=== PATIENT | male | born 1940 | race Hispanic/Latino ===

== ENCOUNTER 2017-08-06 13:26 | Observation (INO) | payer MEDICARE ==
[2017-08-06 13:44] VITALS: BMI 31.4
[2017-08-06 13:49] VITALS: RESP 20
[2017-08-06 14:22] LABS: BASO # 0.1 K/uL (0.0-0.2); BASO % 0.8 % (0.0-2.0); EOS # 0.1 K/uL (0.0-0.7); EOS % 1.5 % (0.0-4.0); HEMOGLOBIN 13.8 g/dL (12.0-18.0); LYMPH # 1.9 K/uL (1.0-4.3); LYMPH % 22.4 % (20.0-40.0); MEAN CORPUSCULAR HEMOGLOBIN 31.1 pg (27.0-31.0); MEAN CORPUSCULAR HGB CONC 35.7 g/dL (33.0-37.0); MEAN PLATELET VOLUME 7.9 fL (7.2-11.7); MONO # 0.6 K/uL (0.0-0.8); MONO % 7.3 % (0.0-10.0); NEUT # 5.8 K/uL (1.8-7.0); RBC 4.45 Mil/uL (4.40-5.90); RED CELL DISTRIBUTION WIDTH 12.7 % (11.5-14.5); WHITE BLOOD COUNT 8.6 K/uL (4.8-10.8)
[2017-08-06 14:34] LABS: ALB/GLOB RATIO 1.3 (1.0-2.1); ALBUMIN 3.9 g/dL (3.5-5.0); ALT/SGPT 26 U/L (21-72); AST/SGOT 23 U/L (17-59); BLOOD UREA NITROGEN 21 mg/dL (9-20); CALCIUM 8.9 mg/dl (8.6-10.4); GFR AFRICAN-AMERICAN > 60; GFR NON-AFRICAN AMERICAN 54
--- NOTE | 2017-08-06 14:43 | RAD ---
PROCEDURE: CHEST RADIOGRAPH, 1 VIEW HISTORY: chest pain COMPARISON: None available. FINDINGS: LUNGS: Clear. PLEURA: No pneumothorax or pleural fluid seen. CARDIOVASCULAR: Atherosclerotic aortic calcifications. Cardiomediastinal silhouette is enlarged. OSSEOUS STRUCTURES: Degenerative changes. VISUALIZED UPPER ABDOMEN: Normal. OTHER FINDINGS: None. IMPRESSION: No active disease.
--- NOTE | 2017-08-06 14:52 | C.PDOC ---
History Of Present Illness 77 year old male presents to the ED for evaluation of dizziness, lightheadedness and mid-sternal chest tightness which had sudden onset after he got out of the shower earlier today. Patient states symptoms are associated with shortness of breath and worsen when taking a deep breath. Patient then sat down in his living room, took an Aspirin, and found the gradual improvement of the discomfort. Patient states he was evaluated by his roofer gypsum's (Dr. Mims) office last month and underwent a nuclear stress test. He has a follow -up appointment with Dr. Mims on 08/13 where he will receive the results. Patient denies fever, chills, vision change, nausea, vomiting, extremity numbness/weakness. Time Seen by Provider: 08/06/17 14:01 Chief Complaint (Nursing): Chest Pain History Per: Patient History/Exam Limitations: no limitations Onset/Duration Of Symptoms: Hrs, Sudden Onset Current Symptoms Are (Timing): Better Quality: "Pain" Associated Symptoms: denies: Nausea Additional History Per: Patient Past Medical History Reviewed: Historical Data, Nursing Documentation, Vital Signs Vital Signs: Last Vital Signs Temp 97.7 F 08/06/17 13:44 Pulse 56 L 08/06/17 13:44 Resp 20 08/06/17 13:44 BP 148/75 08/06/17 13:44 Pulse Ox 98 08/06/17 15:34 - Medical History PMH: HTN Surgical History: No Surg Hx - [facility] Procedures CORONAR ARTERIOGR-2 CATH (04/20/12) INSERTION OF ONE VASCULAR STENT (04/20/12) INSRT OF DRUG-ELUTING CORON ARTERY STENTS(S) (04/20/12) LEFT HEART CARDIAC CATH (04/20/12) LT HEART ANGIOCARDIOGRAM (04/20/12) PERCUTANEOUS TRANSLUMINAL CORONARY ANGIOPLASTY [PTCA] (04/20/12) PROCEDURE ON SINGLE VESSEL (04/20/12) Family History: States: Unknown Family Hx - Social History Hx Alcohol Use: Yes Hx Substance Use: No - Immunization History Hx Tetanus Toxoid Vaccination: No Hx Influenza Vaccination: Yes Hx Pneumococcal Vaccination: No Review Of Systems Constitutional: Negative for: Fever, Chills Cardiovascular: Positive for: Other (mid-sternal chest tightness ) Gastrointestinal: Negative for: Nausea, Vomiting Neurological: Positive for: Dizziness, Other (lightheadedness ). Negative for: Weakness, Numbness Physical Exam - Physical Exam Appears: Non-toxic, No Acute Distress Skin: Normal Color, Warm, Dry Head: Atraumatic, Normacephalic Eye(s): bilateral: Normal Inspection Oral Mucosa: Moist Neck: Supple Chest: Symmetrical, No Deformity, No Tenderness Cardiovascular: Rhythm Regular, No Murmur Respiratory: Normal Breath Sounds, No Rales, No Rhonchi, No Wheezing Gastrointestinal/Abdominal: Soft, No Tenderness, No Guarding, No Rebound Extremity: Normal ROM, Capillary Refill (less than 2 seconds ) Neurological/Psych: Oriented x3, Normal Speech, Normal Cognition ED Course And Treatment - Laboratory Results Result Diagrams: 08/06/17 14:17 08/06/17 14:17 Lab Interpretation: No Acute Changes ECG: Interpreted By Me ECG Rhythm: Sinus Bradycardia ECG Interpretation: No Acute Changes O2 Sat by Pulse Oximetry: 98 (on RA) Pulse Ox Interpretation: Normal - Radiology CXR: Interpreted by Me CXR Interpretation: Yes: Other (vascular congestion perihilar with prominence for the cardiomediastinal silhouette) Progress Note: Bloodwork, CXR, and EKG ordered and reviewed. Reevaluation Time: 15:03 Reassessment Condition: Improved - Physician Consult Information Time Consulting Physician Contacted: 15:03 Physician Contacted: Epifanio Mims Outcome Of Conversation: Patient to remain in the hospital for cardiac observation. He will be admitted to Dr Lewis Causey's service. Disposition - Disposition Disposition: HOSPITALIZED Disposition Time: 15:17 Condition: STABLE - POA Present On Arrival: None - Clinical Impression Clinical Impression: Chest pain - Scribe Statement The provider has reviewed the documentation as recorded by the Scribe (Alessandra Causey) Provider Attestation: All medical record entries made by the Scribe were at my direction and personally dictated by me. I have reviewed the chart and agree that the record accurately reflects my personal performance of the history, physical exam, medical decision making, and the department course for this patient. I have also personally directed, reviewed, and agree with the discharge instructions and disposition.
--- NOTE | 2017-08-06 17:53 | CP.PCM.CON ---
Past Patient History - Past Social History Smoking Status: Light Smoker < 10 Cigarettes Daily - CARDIAC Hx Hypertension: Yes - GENITOURINARY/GYNECOLOGICAL Hx Prostate Cancer: Yes - PSYCHIATRIC Hx Substance Use: No - SURGICAL HISTORY Other/Comment: Stent x 1 - ANESTHESIA Hx Anesthesia: Yes Hx Anesthesia Reactions: No Meds Allergies/Adverse Reactions: Allergies Allergy/AdvReac Type Severity Reaction Status Date / Time No Known Allergies Allergy Verified 08/06/17 13:40 - Medications Medications: Current Medications Amlodipine Besylate (Norvasc) 10 mg PO DAILY [facility] Aspirin (Aspirin) 325 mg PO DAILY [facility] Enoxaparin Sodium (Lovenox) 40 mg SC DAILY [facility] Lisinopril (Zestril) 20 mg PO DAILY [facility] Metoprolol Tartrate (Lopressor) 25 mg PO DAILY [facility] Results - Vital Signs Recent Vital Signs: Last Vital Signs Temp 97 F L 08/06/17 16:30 Pulse 59 L 08/06/17 17:04 Resp 20 08/06/17 16:30 BP 149/70 08/06/17 16:30 Pulse Ox 98 08/06/17 16:30 - Labs Result Diagrams: 08/06/17 14:17 08/06/17 14:17 Labs: Laboratory Results - last 24 hr 08/06/17 08/06/17 14:17 14:17 WBC 8.6 RBC 4.45 Hgb 13.8 Hct 38.7 MCV 87.0 MCH 31.1 H MCHC 35.7 RDW 12.7 Plt Count 230 MPV 7.9 Neut % (Auto) 68.0 Lymph % (Auto) 22.4 [place] % (Auto) 7.3 Eos % (Auto) 1.5 Baso % (Auto) 0.8 Neut # (Auto) 5.8 Lymph # (Auto) 1.9 [place] # (Auto) 0.6 Eos # (Auto) 0.1 Baso # (Auto) 0.1 Sodium 139 Potassium 4.4 Chloride 104 Carbon Dioxide 23 Anion Gap 16 BUN 21 H Creatinine 1.3 Est GFR ( Amer) > 60 Est GFR (Non-Af Amer) 54 Random Glucose 95 Calcium 8.9 Total Bilirubin 0.5 AST 23 ALT 26 Alkaline Phosphatase 69 Troponin I < 0.0120 Total Protein 7.0 Albumin 3.9 Globulin 3.1 Albumin/Globulin Ratio 1.3
--- NOTE | 2017-08-06 23:30 | CP.PCM.HP ---
Past Patient History - Past Social History Smoking Status: Light Smoker < 10 Cigarettes Daily - CARDIAC Hx Hypertension: Yes - GENITOURINARY/GYNECOLOGICAL Hx Prostate Cancer: Yes - PSYCHIATRIC Hx Substance Use: No - SURGICAL HISTORY Other/Comment: Stent x 1 - ANESTHESIA Hx Anesthesia: Yes Hx Anesthesia Reactions: No Meds Allergies/Adverse Reactions: Allergies Allergy/AdvReac Type Severity Reaction Status Date / Time No Known Allergies Allergy Verified 08/06/17 13:40 Results - Vital Signs Recent Vital Signs: Last Vital Signs Temp 97 F L 08/06/17 16:30 Pulse 59 L 08/06/17 17:04 Resp 20 08/06/17 16:30 BP 149/70 08/06/17 16:30 Pulse Ox 98 08/06/17 16:30 - Labs Result Diagrams: 08/06/17 14:17 08/06/17 14:17 Labs: Laboratory Results - last 24 hr 08/06/17 08/06/17 08/06/17 14:17 14:17 22:30 WBC 8.6 RBC 4.45 Hgb 13.8 Hct 38.7 MCV 87.0 MCH 31.1 H MCHC 35.7 RDW 12.7 Plt Count 230 MPV 7.9 Neut % (Auto) 68.0 Lymph % (Auto) 22.4 [place] % (Auto) 7.3 Eos % (Auto) 1.5 Baso % (Auto) 0.8 Neut # (Auto) 5.8 Lymph # (Auto) 1.9 [place] # (Auto) 0.6 Eos # (Auto) 0.1 Baso # (Auto) 0.1 Sodium 139 Potassium 4.4 Chloride 104 Carbon Dioxide 23 Anion Gap 16 BUN 21 H Creatinine 1.3 Est GFR ( Amer) > 60 Est GFR (Non-Af Amer) 54 Random Glucose 95 Calcium 8.9 Total Bilirubin 0.5 AST 23 ALT 26 Alkaline Phosphatase 69 Total Creatine Kinase 63 CK-MB (Mass) 0.30 Troponin I < 0.0120 < 0.0120 Total Protein 7.0 Albumin 3.9 Globulin 3.1 Albumin/Globulin Ratio 1.3
[2017-08-07 01:25] VITALS: O2SAT 96
[2017-08-07 07:48] LABS: CK-MB 0.37 ng/mL (0.0-3.38); TROPONIN I 0.035 ng/mL (0.00-0.120)
[2017-08-07 08:48] VITALS: BP 154/73; TEMP 98.3
--- NOTE | 2017-08-07 09:44 | CP.PCM.PN ---
Subjective - Date & Time of Evaluation Date of Evaluation: 08/07/17 Time of Evaluation: 09:35 - Subjective Subjective: patient has no chest pain or dyspnea Objective - Vital Signs/Intake and Output Vital Signs (last 24 hours): Temp Pulse Resp BP Pulse Ox 98.3 F 64 20 154/73 H 96 08/07/17 08:47 08/07/17 08:47 08/07/17 08:47 08/07/17 09:35 08/07/17 08:47 - Medications Medications: Current Medications Amlodipine Besylate (Norvasc) 10 mg PO DAILY [facility] Last Admin: 08/07/17 09:36 Dose: 10 mg Aspirin (Aspirin) 325 mg PO DAILY [facility] Last Admin: 08/07/17 09:35 Dose: 325 mg Enoxaparin Sodium (Lovenox) 40 mg SC DAILY [facility] Last Admin: 08/07/17 09:36 Dose: 40 mg Lisinopril (Zestril) 20 mg PO DAILY [facility] Last Admin: 08/07/17 09:36 Dose: 20 mg Metoprolol Tartrate (Lopressor) 25 mg PO DAILY [facility] Last Admin: 08/07/17 09:35 Dose: 25 mg - Labs Labs: 08/06/17 14:17 08/06/17 14:17 - Constitutional Appears: Non-toxic - Head Exam Head Exam: NORMAL INSPECTION - Eye Exam Eye Exam: Normal appearance - ENT Exam ENT Exam: Mucous Membranes Moist - Neck Exam Neck Exam: Full ROM - Respiratory Exam Respiratory Exam: NORMAL BREATHING PATTERN - Cardiovascular Exam Cardiovascular Exam: REGULAR RHYTHM - GI/Abdominal Exam GI & Abdominal Exam: Normal Bowel Sounds - Rectal Exam Rectal Exam: Deferred - Extremities Exam Extremities Exam: Normal Inspection - Back Exam Back Exam: NORMAL INSPECTION - Neurological Exam Neurological Exam: Alert - Psychiatric Exam Psychiatric exam: Normal Affect - Skin Skin Exam: Normal Color Assessment and Plan (1) Chest pain Assessment & Plan: ruled out for NE. chest pain is atypical. stress test is normal. recommend d/ c home. Status: Acute (2) CAD (coronary artery disease) Assessment & Plan: recommend ASA/Plavix Status: Acute (3) HTN (hypertension) Assessment & Plan: blood pressure control Status: Acute
[2017-08-07] MEDS ORDERED: Enoxaparin 40 mg Syringe SC SCH (10:00)
--- NOTE | 2017-08-07 11:55 | CARD ---
APPROVED REPORT EKG Measurement Heart [id number] NM [id number] <Conclusion> Sinus bradycardia Otherwise normal ECG
[2017-08-07 12:08] VITALS: PULSE 60
--- NOTE | 2017-08-07 13:10 | CP.PCM.PN ---
<PedroDuyen - Last Filed: 08/07/17 14:58> Subjective - Date & Time of Evaluation Date of Evaluation: 08/07/17 Time of Evaluation: 07:00 - Subjective Subjective: PGY2 medicine progress note for Dr. Lewis Causey: Patient was seen and examined at bedside this morning. Patient has had chest pain and neck pain that comes and goes since he had his stress test. He said he lifted his arms when they took the pictures and since then has had some pain in his neck and shoulders. He denied pain today. Dr Mims reported his stress test to be normal and has cleared the patient for discharge. No other new complaints today. Patient denies fever, chills, vision change, nausea, vomiting, extremity numbness/weakness. Objective - Vital Signs/Intake and Output Vital Signs (last 24 hours): Temp Pulse Resp BP Pulse Ox 98.3 F 60 20 154/73 H 96 08/07/17 08:47 08/07/17 12:07 08/07/17 08:47 08/07/17 09:35 08/07/17 08:47 - Medications Medications: Current Medications Amlodipine Besylate (Norvasc) 10 mg PO DAILY [facility] Last Admin: 08/07/17 09:36 Dose: 10 mg Aspirin (Aspirin) 325 mg PO DAILY [facility] Last Admin: 08/07/17 09:35 Dose: 325 mg Clopidogrel Bisulfate (Plavix) 75 mg PO DAILY [facility] Last Admin: 08/07/17 11:45 Dose: 75 mg Enoxaparin Sodium (Lovenox) 40 mg SC DAILY [facility] Last Admin: 08/07/17 09:36 Dose: 40 mg Lisinopril (Zestril) 20 mg PO DAILY [facility] Last Admin: 08/07/17 09:36 Dose: 20 mg Metoprolol Tartrate (Lopressor) 25 mg PO DAILY [facility] Last Admin: 08/07/17 09:35 Dose: 25 mg - Labs Labs: 08/06/17 14:17 08/06/17 14:17 - Constitutional Appears: Non-toxic, No Acute Distress - Head Exam Head Exam: ATRAUMATIC, NORMAL INSPECTION - Eye Exam Eye Exam: EOMI Pupil Exam: NORMAL ACCOMODATION - ENT Exam ENT Exam: Mucous Membranes Moist - Respiratory Exam Respiratory Exam: Clear to Ausculation Bilateral, NORMAL BREATHING PATTERN. absent: Respiratory Distress - Cardiovascular Exam Cardiovascular Exam: REGULAR RHYTHM, +S1, +S2 - GI/Abdominal Exam GI & Abdominal Exam: Soft, Normal Bowel Sounds. absent: Distended, Firm, Guarding, Tenderness Additional comments: obese - Extremities Exam Extremities Exam: Normal Inspection - Back Exam Back Exam: NORMAL INSPECTION. 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 Mims cardiology - outpatient recent stress test was normal --> cleared for DC with outpatient follow up Chest X ray - no active diseasxe ROMIS negative x 3 ASA 81mg PO daily, Plavix 75mg PO daily Hypertension Norvasc 10mg Po daily Lisinopril 20mg PO daily Lopressor 25mg PO daily All management per Dr. Lewis Causey. Patient is stable for discharge home. He is to follow up with Dr. Mims, cardiology, within one weeks of discharge. Patient is also to get a primary care doctor (ref given to Dr. Lewis Causey) to follow up for hospital discharge. Patient is to follow up outpatient for his muscular skeletal pain. He is to take NSADI/ibuprofen as needed for pain. Patient is also to take the following medications: Norvasc 10mg by mouth daily Aspirin 81mg by mouth daily Plavix 75mg by mouth daily Lisibopril 20mg by mouth daily Lopressor 25mg by mouth daily Medications were sent to the patient's pharmacy: [facility]. Patient is to return to the ER is symptoms return. All instructions explained to the patient and he agrees. <Santino Causey - Last Filed: 08/08/17 11:54> Objective - Vital Signs/Intake and Output Vital Signs (last 24 hours): Temp Pulse Resp BP Pulse Ox 98.3 F 60 20 154/73 H 96 08/07/17 08:47 08/07/17 12:07 08/07/17 08:47 08/07/17 09:35 08/07/17 08:47 - Labs Labs: 08/06/17 14:17 08/06/17 14:17 Attending/Attestation - Attestation I have personally seen and examined this patient.: Yes I have fully participated in the care of the patient.: Yes I have reviewed all pertinent clinical information, including history, physical exam and plan: Yes Notes (Text): case seen and d.w staff and resident, concurred with finding and management..
== END 2017-08-07 16:00 | disposition home or self-care (01) ==
LOC: C.ER 13:26 → C.9E 15:20 → C.6T 15:52
PROVIDERS: ADMIT Internal Medicine Nephrology; ATTEND Internal Medicine Nephrology
DX: M94.0 Chondrocostal junction syndrome [Tietze] (principal); I10 Essential (primary) hypertension; I25.10 Atherosclerotic heart disease of native coronary artery without angina pectoris; Z79.82 Long term (current) use of aspirin; Z87.891 Personal history of nicotine dependence; Z85.46 Personal history of malignant neoplasm of prostate
CPT/HCPCS: 36415; 71045; 80053; 84484; 85025; 93005; 96372; 99285; G0378; J1650

== ENCOUNTER 2018-01-28 06:26 | Emergency (ER) | payer MEDICARE ==
[2018-01-28 06:26] VITALS: BMI 31.4
[2018-01-28] MEDS ORDERED: Sodium Chloride 0.9% 1,000 ML IV ONE (07:33)
[2018-01-28 07:39] LABS: BASO # 0.1 K/uL (0.0-0.2); BASO % 1.3 % (0.0-2.0); EOS # 0.2 K/uL (0.0-0.7); EOS % 2.4 % (0.0-4.0); HEMOGLOBIN 13.4 g/dL (12.0-18.0); LYMPH # 1.7 K/uL (1.0-4.3); LYMPH % 24.5 % (20.0-40.0); MEAN CELL VOLUME 87.5 fL (80.0-94.0); MEAN CORPUSCULAR HEMOGLOBIN 31.4 pg (27.0-31.0); MEAN CORPUSCULAR HGB CONC 35.9 g/dL (33.0-37.0); MEAN PLATELET VOLUME 7.9 fL (7.2-11.7); MONO # 0.5 K/uL (0.0-0.8); MONO % 6.7 % (0.0-10.0); NEUT # 4.5 K/uL (1.8-7.0); NEUT % 65.1 % (50.0-75.0); NRBC % 0.1 % (0.0-2.0); RBC 4.28 Mil/uL (4.40-5.90); RED CELL DISTRIBUTION WIDTH 12.6 % (11.5-14.5)
[2018-01-28 07:45] LABS: URINE BILIRUBIN NEGATIVE (NEGATIVE); URINE BLOOD NEGATIVE (NEGATIVE); URINE CLARITY Clear (Clear); URINE COLOR Yellow (YELLOW); URINE GLUCOSE (UA) NORMAL (Normal); URINE LEUKOCYTE ESTERASE NEG Leu/uL (Negative); URINE PROTEIN NEGATIVE (NEGATIVE); URINE UROBILINOGEN NORMAL mg/dL (0.2-1.0)
[2018-01-28 08:26] LABS: BLOOD UREA NITROGEN 18 mg/dL (9-20); CALCIUM 9.2 mg/dl (8.6-10.4); GFR NON-AFRICAN AMERICAN > 60
[2018-01-28 08:27] LABS: ALB/GLOB RATIO 1.4 (1.0-2.1); ALT/SGPT 27 U/L (21-72); AST/SGOT 22 U/L (17-59); LIPASE 90 U/L (23-300)
[2018-01-28] MEDS ORDERED: Iodixanol 320 mg/ml 150 ml Bottle IV ONE (09:12)
--- NOTE | 2018-01-28 10:03 | C.PDOC ---
History Of Present Illness 77 y/o male presents to the ER complaining of tenderness in right groin which has been present for the past several weeks. Patient states that he was evaluated by a urologist, he has an US report which shows enlarged lymph nodes.Patient reports that he was referred to a surgeon, he has an appointment in 6 days. However, he is continuing to have pain so he decided to visit the ER.Denies having dysuria and hematuria. Time Seen by Provider: 01/28/18 07:26 Chief Complaint (Nursing): Groin Pain History Per: Patient History/Exam Limitations: no limitations Onset/Duration Of Symptoms: Days Current Symptoms Are (Timing): Still Present Severity: Moderate Past Medical History Reviewed: Historical Data, Nursing Documentation, Vital Signs Vital Signs: Last Vital Signs Temp 97.6 F 01/28/18 06:36 Pulse 92 H 01/28/18 06:36 Resp 18 01/28/18 06:36 BP 111/60 01/28/18 06:36 Pulse Ox 98 01/28/18 06:36 - Medical History PMH: HTN Surgical History: Coronary Stent - [facility] Procedures CORONAR ARTERIOGR-2 CATH (04/20/12) INSERTION OF ONE VASCULAR STENT (04/20/12) INSRT OF DRUG-ELUTING CORON ARTERY STENTS(S) (04/20/12) LEFT HEART CARDIAC CATH (04/20/12) LT HEART ANGIOCARDIOGRAM (04/20/12) PERCUTANEOUS TRANSLUMINAL CORONARY ANGIOPLASTY [PTCA] (04/20/12) PROCEDURE ON SINGLE VESSEL (04/20/12) Family History: States: No Known Family Hx - Social History Hx Alcohol Use: No Hx Substance Use: No - Immunization History Hx Tetanus Toxoid Vaccination: No Hx Influenza Vaccination: Yes Hx Pneumococcal Vaccination: No Review Of Systems Except As Marked, All Systems Reviewed And Found Negative. Constitutional: Negative for: Fever, Chills Genitourinary: Positive for: Other (tenderness and lump in right groin) Physical Exam - Physical Exam Appears: Non-toxic, No Acute Distress, Other (obese white male) Skin: Normal Color, Warm, Dry Head: Atraumatic, Normacephalic Eye(s): bilateral: Normal Inspection Nose: Normal Oral Mucosa: Moist Neck: Supple Chest: Symmetrical Cardiovascular: Rhythm Regular Respiratory: Normal Breath Sounds, No Rales, No Rhonchi, No Wheezing Gastrointestinal/Abdominal: Normal Exam, Soft, No Tenderness, No Guarding, No Rebound Extremity: Normal ROM, No Tenderness, No Swelling, Other (obese right groin with no lymphadenopathy) Neurological/Psych: Oriented x3, Normal Speech ED Course And Treatment - Laboratory Results Result Diagrams: 01/28/18 07:35 01/28/18 07:35 O2 Sat by Pulse Oximetry: 98 (RA) Pulse Ox Interpretation: Normal Medical Decision Making Medical Decision Making: non-specific b/l sub-centimeter inguinal LN's discomfort well controlled with Toradol IV so Motrin PO may be trialed @ home. further f/u per and Gen Surg. Disposition - Disposition Referrals: Chase Read MD [Primary Care Provider] - Disposition: HOME/ ROUTINE Condition: GOOD Additional Instructions: small lymph nodes in the groin are non-specific CT results given so you may share with surgery and Urology consults Take motrin/Advil 400-600 mg every 6 hours as needed for groin/lymph node pain Forms: [employer] (Kiswahili) - Clinical Impression Clinical Impression: Inguinal lymphadenopathy - Scribe Statement The provider has reviewed the documentation as recorded by the Scribe Jennifer Gallegos Provider Attestation: All medical record entries made by the Scribe were at my direction and personally dictated by me. I have reviewed the chart and agree that the record accurately reflects my personal performance of the history, physical exam, medical decision making, and the department course for this patient. I have also personally directed, reviewed, and agree with the discharge instructions and disposition.
--- NOTE | 2018-01-28 10:38 | CT ---
Date of service: 01/28/2018 PROCEDURE: CT Abdomen and Pelvis with contrast HISTORY: R groin lymph node, scan below groin COMPARISON: Limited abdominal ultrasound performed 01/12/18 TECHNIQUE: Contrast dose: 100 mL Visipaque IV Radiation dose: Total exam DLP = 1180.11 mGy-cm. This CT exam was performed using one or more of the following dose reduction techniques: Automated exposure control, adjustment of the mA and/or kV according to patient size, and/or use of iterative reconstruction technique. FINDINGS: Examination limited by patient motion. LOWER THORAX: No visible consolidation, pleural effusion, or pneumothorax. Small hiatal hernia/distal esophageal wall thickening. LIVER: Unremarkable. GALLBLADDER AND BILE DUCTS: Unremarkable. PANCREAS: Fatty atrophy. SPLEEN: Unremarkable. ADRENALS: Nodular hypertrophy involving the medial limb left adrenal gland. Right adrenal gland appears unremarkable. KIDNEYS AND URETERS: The kidneys enhance symmetrically. No hydronephrosis or obstructing calculus identified. VASCULATURE: Aneurysmal dilatation of the infrarenal abdominal aorta measures approximately 2.8 x 2.8 x 3.2 cm (AP by transverse by cc). Atherosclerotic calcification of the aorta present. BOWEL: Stomach is nondistended. Lack of oral contrast limits evaluation for bowel pathology. Bowel loops appear within normal limits of caliber without evidence of obstruction. Thick-walled loops of small bowel; correlate for possibility of enteritis. APPENDIX: The appendix appears within normal limits of caliber. No secondary signs of acute appendicitis. PERITONEUM: No significant free fluid. No definite free air. LYMPH NODES: Nonspecific bilateral inguinal lymph nodes appears sub cm with evidence of internal fatty hilum. BLADDER: Mildly thick-walled urinary bladder. REPRODUCTIVE: Enlarged prostate gland measures approximately 3.8 x 4.4 cm. BONES: 7 mm anterolisthesis of L5 on S1. Multilevel degenerative changes of the spine. OTHER FINDINGS: None. IMPRESSION: Examination limited by patient motion. Mildly thick-walled urinary bladder. Recommend correlation with urinalysis. Enlarged prostate gland. Recommend correlation with PSA. Nonspecific bilateral inguinal lymph nodes appears sub cm with evidence of internal fatty hilum. Thick-walled loops of small bowel; correlate for possibility of enteritis. Nodular hypertrophy involving the medial limb left adrenal gland. Aneurysmal dilatation of the infrarenal abdominal aorta measures approximately 2.8 x 2.8 x 3.2 cm (AP by transverse by cc). Small hiatal hernia/distal esophageal wall thickening.
[2018-01-28 11:04] VITALS: RESP 20; O2SAT 98
--- NOTE | 2018-01-28 11:08 | C.PDOC ---
Time Seen by Provider: 01/28/18 07:26 Chief Complaint (Nursing): Groin Pain Past Medical History Vital Signs: Last Vital Signs Temp 97.3 F L 01/28/18 09:56 Pulse 63 01/28/18 09:56 Resp 20 01/28/18 09:56 BP 191/70 H 01/28/18 09:56 Pulse Ox 98 01/28/18 10:11 - Medical History PMH: HTN Surgical History: Coronary Stent - [facility] Procedures CORONAR ARTERIOGR-2 CATH (04/20/12) INSERTION OF ONE VASCULAR STENT (04/20/12) INSRT OF DRUG-ELUTING CORON ARTERY STENTS(S) (04/20/12) LEFT HEART CARDIAC CATH (04/20/12) LT HEART ANGIOCARDIOGRAM (04/20/12) PERCUTANEOUS TRANSLUMINAL CORONARY ANGIOPLASTY [PTCA] (04/20/12) PROCEDURE ON SINGLE VESSEL (04/20/12) Family History: States: No Known Family Hx, Unknown Family Hx - Social History Hx Alcohol Use: No Hx Substance Use: No - Immunization History Hx Tetanus Toxoid Vaccination: No Hx Influenza Vaccination: Yes Hx Pneumococcal Vaccination: No ED Course And Treatment - Laboratory Results Result Diagrams: 01/28/18 07:35 01/28/18 07:35 O2 Sat by Pulse Oximetry: 98 (RA) Medical Decision Making Medical Decision Making: non-specific b/l sub-centimeter inguinal LN's discomfort well controlled with Toradol IV so Motrin PO may be trialed @ home. further f/u per and Gen Surg. Disposition Doctor Will See Patient In The: Office Counseled Patient/Family Regarding: Studies Performed, Diagnosis - Disposition Referrals: Chase Read MD [Primary Care Provider] - Disposition: HOME/ ROUTINE Disposition Time: 11:07 Condition: GOOD Forms: [employer] (Greek) - Clinical Impression Clinical Impression: Inguinal lymphadenopathy
[2018-01-28 11:30] VITALS: BP 172/86; PULSE 75; TEMP 97.6
== END 2018-01-28 11:21 | disposition home or self-care (01) ==
LOC: C.ER 06:26 → SUPCPDRO 06:26 → C.ER 11:21
DX: R59.1 Generalized enlarged lymph nodes (principal)
CPT/HCPCS: 74177; 80053; 81001; 82948; 83690; 85025; 93005; 96361; 96374; 99283; J1885; J7030; Q9967